=== PATIENT | female | born 1995 | race African-American/Black ===

== ENCOUNTER 2023-08-05 15:27 | Outpatient (CLI) | payer BC, SELFPAY ==
[2023-08-05 19:58] LABS: Chlamydia DNA Amplified* NOT DETECTED (No Detected); GC DNA Amplified* NOT DETECTED (No Detected)
== END 2023-08-05 15:28 | disposition home or self-care (01) ==
LOC: NFLDREF 15:28
PROVIDERS: Visit Provider Obstetrics & Gynecology
DX: Z11.3 Encounter for screening for infections with a predominantly sexual mode of transmission (principal)
CPT/HCPCS: 87491; 87591

== ENCOUNTER 2023-09-20 15:13 | Outpatient (CLI) | payer BC, SELFPAY ==
[2023-09-20 22:00] LABS: Chlamydia DNA Amplified* Not Detected (No Detected); GC DNA Amplified* Not Detected (No Detected)
== END 2023-09-20 15:14 | disposition home or self-care (01) ==
PROVIDERS: Visit Provider Registered Nurse
DX: Z11.3 Encounter for screening for infections with a predominantly sexual mode of transmission (principal); N89.8 Other specified noninflammatory disorders of vagina
CPT/HCPCS: 87491; 87591

== ENCOUNTER 2024-02-28 08:10 | Outpatient (CLI) | payer BC, SELFPAY | END 2024-02-28 08:11 | disposition home or self-care (01) | LOC: NFLDREF 10:15 | PROVIDERS: Visit Provider Obstetrics & Gynecology | DX: N97.0 Female infertility associated with anovulation (principal) | CPT/HCPCS: 80061; 82947; 83498; 84146; 84270; 84402; 84403; 84443 ==

== ENCOUNTER 2024-04-05 15:53 | Outpatient (CLI) | payer BC, SELFPAY ==
--- NOTE | 2024-04-05 16:00 | CRLHL7_ITS ---
For Patients: As a result of the Century Cures Act, medical imaging exams and procedure reports are released immediately into your electronic medical record. You may view this report before your referring provider. If you have questions, please contact your health care provider. CLINICAL HISTORY: check IUD placement TECHNIQUE: 2D medeiros scale and color Doppler images were acquired of the pelvis using a transvaginal approach. FINDINGS: On transvaginal imaging, the myometrium has a normal uniform measures 7.8 mm in thickness. Good position of the IUD within the endometrial canal. The left ovary measures 3.3 x 2.4 x 2.5 cm in size and the right ovary measures 3.1 x 1.7 x 2.1 cm. The ovaries demonstrate normal arterial and venous blood flow on color Doppler analysis. There are no suspicious fluid collections within the cul-de-sac. IMPRESSION: Good position of the IUD within the endometrial canal. Dictated by Massimo Jasso MD @ 04/06/2024 2:36:26 PM (Electronically Signed)
== END 2024-04-05 15:54 | disposition home or self-care (01) ==
LOC: US 15:53
PROVIDERS: Visit Provider Obstetrics & Gynecology
DX: Z30.431 Encounter for routine checking of intrauterine contraceptive device (principal)
CPT/HCPCS: 76830

== ENCOUNTER 2024-05-10 07:27 | Emergency (ER) | payer OTHER, BC, SELFPAY ==
[2024-05-10 07:32] VITALS: BP 112/83; PULSE 83; RESP 16; TEMP 36.2; O2SAT 98; BMI 42.8
--- NOTE | 2024-05-10 07:39 | CRLHL7_ITS ---
For Patients: As a result of the Century Cures Act, medical imaging exams and procedure reports are released immediately into your electronic medical record. You may view this report before your referring provider. If you have questions, please contact your health care provider. INDICATION: Trauma. COMPARISON: Same day radiographic examination of the proximal left tibia and fibula. TECHNIQUE: Three views left ankle. FINDINGS: Anteromedial periarticular soft tissue swelling. No fracture or dislocation. Incidental plantar calcaneal spur. IMPRESSION: Periarticular soft tissue swelling as above. No fracture is identified. Dictated by Anderson Agustin MD @ 05/10/2024 8:15:18 AM (Electronically Signed)
--- NOTE | 2024-05-10 07:39 | CRLHL7_ITS ---
For Patients: As a result of the Cures Act, medical imaging exams and procedure reports are released immediately into your electronic medical record. You may view this report before your referring provider. If you have questions, please contact your health care provider. INDICATION: Fall. COMPARISON: Same day radiographic examination of the ipsilateral left ankle. TECHNIQUE: Two-view FINDINGS: AP and lateral radiographs of the proximal tibia and fibula (the distal tibia and fibula are included on separate same-day radiographic examination of the ipsilateral left ankle). Normal mineralization and alignment. No fracture is identified. No significant incidental findings related to the knee. Unremarkable soft tissues. IMPRESSION: No acute traumatic injury is identified. Dictated by Anderson Agustin MD @ 05/10/2024 8:14:14 AM (Electronically Signed)
--- NOTE | 2024-05-10 07:40 | ED_ITS ---
HPI - General Adult General Chief complaint: Extremity Pain/Injury, Lower Stated complaint: LT ankle injury at work today Time Seen by Provider: 05/10/24 07:39 History of Present Illness HPI narrative: Patient presents to the emergency department complaining of left ankle pain post fall at work. 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 Patient states she did not hear a pop or crack however felt it. Patient was able to walk however was painful and used the assistance of a crutch. 28-year-old young woman presenting to the emergency department with concern of left ankle pain after a slip and fall at work. Slipped in her boots and got her foot stuck underneath machinery. She hyperextended her left ankle and felt a pop. No other injuries sustained. Did not hit her head. Was able to bear little bit of weight with a crutch. Related Data Home Medications ?Medication ?Instructions ?Recorded ?Confirmed levonorgestrel 21 mcg/24 hr (up to 1 device intrauterine ONCE 04/17/24 04/17/24 8 years) 52 mg intrauterine device (Mirena) Previous Rx's ?Medication ?Instructions ?Recorded albuterol sulfate 90 mcg/actuation 2 puff inhalation Q4-6H PRN 04/10/23 aerosol inhaler shortness of breath or wheezing #8.5 grams Allergies Allergy/AdvReac Type Severity Reaction Status Date / Time tree fruits Allergy Intermediate itching Uncoded 04/17/24 12:47 tree nuts Allergy Intermediate itching Uncoded 04/17/24 12:47 cats Allergy Mild itching Uncoded 04/17/24 12:47 dogs Allergy Mild itching Uncoded 04/17/24 12:47 Review of Systems Status of ROS: Reports: 6 or more systems reviewed and unremarkable except as noted in History and below [facility] Medical History 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 Energetic. Skin is warm and dry. Appreciate some swelling superior to low sock line on her left fibula/anterior ankle. Quite tender in this area. Distal most aspect of the fibula is not so tender. No navicular base of 5th metatarsal tenderness. No medial malleolar tenderness. Does not have pain to palpation about the knee or elsewhere in the leg. Is breathing easily. Heart in regular rate and rhythm. Const: Vital Signs, click to edit/add: Vital Signs - 24 hr 05/10/24 07:32 Temperature 97.1 F L Pulse Rate [Left P ulse Oximeter] 83 Respiratory Rate 16 Blood Pressure [Le ft Forearm] 112/83 Pulse Oximetry 98 Oxygen Delivery Me thod Room Air Documenting provider has reviewed patient's vital signs: yes Course Vital Signs Vital signs: Initial Vital Signs Temperature 97.1 F L 05/10/24 07:32 Temperature Source Temporal Artery Scan 05/10/24 07:32 Pulse Rate 83 05/10/24 07:32 Pulse Rhythm Regular 05/10/24 07:32 Pulse Strength 3+ Normal 05/10/24 07:32 Respiratory Rate 16 05/10/24 07:32 Blood Pressure 112/83 05/10/24 07:32 Blood Pressure Mean 92 05/10/24 07:32 Blood Pressure Position Sitting 05/10/24 07:32 Pulse Oximetry 98 05/10/24 07:32 Oxygen Delivery Method Room Air 05/10/24 07:32 Vital Signs Temperature 97.1 F L 05/10/24 07:32 Pulse Rate 83 05/10/24 07:32 Respiratory Rate 16 05/10/24 07:32 Blood Pressure 112/83 05/10/24 07:32 Pulse Oximetry 98 05/10/24 07:32 Oxygen Delivery Method Room Air 05/10/24 07:32 Temperature 97.1 F L 05/10/24 07:32 Pulse Rate 83 05/10/24 07:32 Respiratory Rate 16 05/10/24 07:32 Blood Pressure 112/83 05/10/24 07:32 Pulse Oximetry 98 05/10/24 07:32 Oxygen Delivery Method Room Air 05/10/24 07:32 Medications Administered Medications: Discontinued Medications Generic Name Dose Route Start Last Admin Trade Name Freq PRN Reason Stop Dose Admin Ibuprofen 800 mg 05/10/24 07:47 05/10/24 08:14 Ibuprofen 400 Mg Tablet PO 05/10/24 07:48 800 mg ONCE ONE Administration Medical Decision Making MDM Narrative Medical decision making narrative: I would have concern of bony injury to the distal fibula. Extremely tender in this area. Does not appear to have sustained other injuries. Will x-ray ankle. Ice pack. Ibuprofen. X-rays of left ankle three view reviewed by me show maintained mortise and no apparent bony abnormality. I think some of what is contributing to exquisite tenderness is hematoma/bruising. Presumably there is ankle sprain as well. They will be fitted for a tall walking boot. Will also supply with crutches Medical Records Medical records reviewed: Yes I reviewed the patient's medical records Discharge Plan Discharge Clinical Impression: Contusion, Ankle sprain Patient Disposition: Home, Self-Care Condition: Stable Additional Instructions: Use the crutches to keep most of the weight off over the next to 3 days. The cam/walking boot should allow for some early mobility. I would get some ice bags as discussed and ice regularly 2 to maybe 3 times a day over the next few days. Compress with Yoel wrap otherwise. I think what is is contributing to more discomfort for you is bruising inside along the bone. See handout for rehab recommendations/instructions. Should be little bit better every 2 days. If not improved in a week, please follow-up. Can take up to 800 mg ibuprofen or up to 1000 mg of acetaminophen per dose. Alternative to the ibuprofen might be up to 500 mg of naproxen 2 times daily. Prescriptions: No Action albuterol sulfate 90 mcg/actuation HFA aerosol inhaler 2 puff inhalation Q4-6H PRN (Reason: shortness of breath or wheezing) Qty: 8.5 0RF Mirena 21 mcg/24 hr (8 yrs) 52 mg intrauterine device 1 device intrauterine ONCE Rx Instructions: as a single dose Follow Up/Referrals: Johnna Wilson, DOCTOR OF PODIATRIC MEDICINE [Primary Care Provider] - Stand Alone Forms: [employer] Info Instructions
[2024-05-10] MEDS: IBUPROFEN 400 MG TABLET 800 MG PO (08:14)
== END 2024-05-10 09:25 | disposition home or self-care (01) ==
PROVIDERS: Emergency Provider Family Medicine; PCP Registered Nurse
DX: S93.402A Sprain of unspecified ligament of left ankle, initial encounter (principal); W00.0XXA Fall on same level due to ice and snow, initial encounter; Y99.0 Civilian activity done for income or pay
CPT/HCPCS: 73590; 73610; 99283; 99284; A9270

== ENCOUNTER 2024-08-06 14:54 | Outpatient (CLI) | payer BC, SELFPAY ==
[2024-08-06 18:47] LABS: Chlamydia DNA Amplified* NOT DETECTED (No Detected); GC DNA Amplified* NOT DETECTED (No Detected)
[2024-08-09 13:54] LABS: HPV Source Cervix; HPV, High Risk by TMA Detected
[2024-08-10 06:57] LABS: HPV Genotype 16 by TMA Not Detected; HPV Genotype 18/45 by TMA Not Detected; HPVG Source Cervix
== END 2024-08-06 14:55 | disposition home or self-care (01) ==
PROVIDERS: PCP Registered Nurse; Visit Provider Obstetrics & Gynecology
DX: Z12.4 Encounter for screening for malignant neoplasm of cervix (principal); Z11.3 Encounter for screening for infections with a predominantly sexual mode of transmission; Z11.51 Encounter for screening for human papillomavirus (HPV)
CPT/HCPCS: 87491; 87591; 87624; 87625; 88141; 88142